=== PATIENT | male | born 1990 | race African-American/Black ===

== ENCOUNTER 2023-11-07 14:57 | Inpatient (IN) | payer OTHER ==
[2023-11-07] MEDS ORDERED: FAMOTIDINE 20 MG/2 ML VIAL IV ONE (15:19)
[2023-11-07] MEDS ORDERED: ONDANSETRON 4 MG/2 ML VIAL ONE (15:19)
[2023-11-07] MEDS ORDERED: NA CHLORIDE 0.9% 1,000 ML ONE ×3 (15:19→22:14)
[2023-11-07 15:59] LABS: Absolute Basophils 0.1 K/uL (0-0.5); Absolute Eosinophils 0.1 K/uL (0-0.5); Absolute Lymphocytes (CBC) 2.1 K/uL (0.7-4.9); Absolute Monocytes 0.7 K/uL (0.1-1.3); Absolute Neutrophil 4.7 K/uL (1.8-8.0); Basophils % 1.2 % (0-1.3); Eosinophils % 1.5 % (0-4.4); Hematocrit 47.3 % (39.6-49.0); Hemoglobin 15.9 g/dL (13.6-17.9); Lymphocytes % 26.7 % (15.3-44.8); MCH 26.3 pg (27.0-35.0); MCHC 33.6 g/dL (32.0-36.0); MCV 78.3 fL (80-100); MPV 9.8 fL (7.6-11.3); Monocytes % 9.1 % (3.3-12.3); Neutrophils % 61.5 % (41.7-73.7); Nucleated Red Blood Cells % 0.2 % (0-0); Platelets 314 thou/uL (152-406); RBC Red Blood Cell Count 6.04 M/uL (4.33-5.43); Red Cell Distribution Width 15.8 % (12.1-15.2)
--- NOTE | 2023-11-07 16:06 | RAD REPORT ---
EXAM DESCRIPTION: Saranya Single View11/07/2023 3:28 pm CLINICAL HISTORY: Chest pain COMPARISON: 2015 FINDINGS: The lungs appear clear of acute infiltrate. The heart is normal size IMPRESSION: No acute abnormalities displayed
[2023-11-07 16:20] LABS: Albumin 4.3 g/dL (3.4-5.0); Albumin/Globulin Ratio 0.9 (1.1-1.8); Bilirubin Total 0.6 mg/dL (0.2-1.0); Globulin 4.9 g/dL (2.3-3.5); Protein, Total 9.2 g/dL (6.4-8.2); Troponin High Sensitivity 6.2 pg/mL (<58.9)
--- NOTE | 2023-11-07 16:48 | ER ---
Nurse's Notes [facility] Name: Vamsi Potter Jr Age: 33 yrs Sex: Male : 1990 Arrival Date: 11/07/2023 Time: 14:57 Bed 19 Private MD: Diagnosis: Diabetes mellitus due to underlying condition with ketoacidosis Presentation: 11/06 15:04 Chief complaint: Patient states: Abdominal pain and chest pains for a couple days. nj1 Denies nausea, vomiting, diarrhea and/or fever. Coronavirus screen: Vaccine status: Patient reports being unvaccinated. Ebola Screen: Patient denies travel to an Ebola-affected area in the 21 days before illness onset. Initial Sepsis Screen: Does the patient meet any 2 criteria? HR > 90 bpm. No. Patient's initial sepsis screen is negative. Does the patient have a suspected source of infection? No. Patient's initial sepsis screen is negative. Risk Assessment: Do you want to hurt yourself or someone else? Patient reports no desire to harm self or others. Onset of symptoms was October 2023. 15:04 Method Of Arrival: Ambulatory [facility] 15:04 Acuity: JORDI 3 nj Historical: - Allergies: 15:06 No Known Allergies; nj1 - PMHx: 15:06 None; nj1 - PSHx: 15:06 None; nj1 - Immunization history:: Client reports having NOT received the Covid vaccine. - Infectious Disease History:: Denies. - Social history:: Smoking status: Patient denies any tobacco usage or history of. Vital Signs: 15:04 BP 128 / 100; Pulse 102; Resp 18; Temp 97.2(TE); Pulse Ox 100% ; Height 5 ft. 2 in. ; nj1 Pain 9/10; 17:38 Weight 117.48 kg (R); Height 5 ft. 10 in. (R); as6 17:38 Body Mass Index 37.16 (117.48 kg, 177.8 cm) as6 15:04 Pain Scale: Adult [facility] ED Course: 15:00 Patient arrived in ED. rg4 15:00 [facility] kb 15:00 Braden Sutherland MD is Attending Physician. kb 15:06 Triage completed. nj1 15:07 Arm band placed on right wrist. nj1 15:10 Taya Aguilera, RN is Primary Nurse. ld1 15:29 XRAY Chest (1 view) In Process Unspecified. EDMS 15:30 Initial lab(s) drawn, by me, sent to lab. Inserted saline lock: 22 gauge in left ll1 antecubital area, using aseptic technique. Blood collected. 16:38 Notified ED physician of a critical lab result(s). BGL 434. ld1 16:47 Baljinder Gomes MD is Hospitalizing Provider. kb 21:20 Inserted saline lock: 22 gauge in right wrist, using aseptic technique. pf1 Administered Medications: 15:35 Drug: NS 0.9% IV 1000 ml IV at 1 bolus Per protocol; 1000 mL bolus Route: IV; Rate: 1 ll1 bolus; Site: left antecubital; 15:40 Drug: Famotidine IVP 20 mg IVP once; dilute with 10 mL 0.9% NaCl; give over 2 minutes ld1 Route: IVP; Site: left antecubital; 15:40 Drug: Ondansetron IVP 4 mg IVP once; over 2 minutes Route: IVP; Site: left antecubital; ld1 17:52 Drug: Insulin Drip - (Insulin Regular Human IVP 100 units, NS 0.9% IV 100 ml) IV at as6 calculated rate continuous; Standard concentration 1unit/ml; Dose for DKA is 0.1 units/kg/hr {Co-Signature: cp4 (Radha Mahajan).} Route: IV; Rate: calculated rate; Site: left antecubital; 19:55 Follow up: Response: No adverse reaction; IV Status: Infusion continued upon admission; as6 IV Intake: 10ml 17:52 Drug: NS 0.9% IV 1000 ml IV at 1000 ml once Route: IV; Rate: 1000 ml; Site: left as6 antecubital; 19:55 Follow up: Response: No adverse reaction; IV Status: Completed infusion; IV Intake: as6 1000ml Intake: 19:55 IV: 1000ml; Total: 1000ml. as6 19:55 IV: 10ml; Total: 1010ml. as6 Outcome: 16:47 Decision to Hospitalize by Provider. kb 21:59 Patient left the ED. as6 Signatures: Dispatcher [employer] EDMS Mellissa Salter, ROUTE SALES MANAGER-C ROUTE SALES MANAGER-Ckb Graciela Ventura rg4 Preston Llanes, RN RN ll1 Taya Aguilera, RN RN ld1 Johan Kelly, RN RN as6 Radha Stern, RN RN pf1 Juany Hooper, RN RN nj1 Radha Mahajan cp4
--- NOTE | 2023-11-07 16:49 | EDPHYS ---
Physician Documentation [facility] Name: Vamsi Potter Jr Age: 33 yrs Sex: Male : 1990 Arrival Date: 11/07/2023 Time: 14:57 Bed 19 Private MD: ED Physician Braden Sutherland HPI: 11/06 16:01 This 33 yrs old Black Male presents to ER via Ambulatory with complaints of Abdominal kb Pain, Nausea. 16:01 Pt is a 33 year old male who presents for abd pain and chest pain that started 3-4 days kb ago. Denies n/v/d, fever. States he has had some shortness of breath. . Historical: - Allergies: 15:06 No Known Allergies; nj1 - PMHx: 15:06 None; nj1 - PSHx: 15:06 None; nj1 - Immunization history:: Client reports having NOT received the Covid vaccine. - Infectious Disease History:: Denies. - Social history:: Smoking status: Patient denies any tobacco usage or history of. ROS: 16:01 Constitutional: As per HPI kb Exam: 16:01 Constitutional: This is a well developed, well nourished patient who is awake, alert, kb and in no acute distress. Head/Face: Normocephalic, atraumatic. ENT: Moist Mucous membranes Cardiovascular: Regular rate Respiratory: Respirations even and unlabored. No increased work of breathing. Talking in full sentences Abdomen/GI: Soft, non-tender. No distention Skin: Warm, dry with normal turgor. Normal color. MS/ Extremity: Pulses equal, no cyanosis. Neurovascular intact. Full, normal range of motion. Neuro: Awake and alert, GCS 15, oriented to person, place, time, and situation. Moves all extremities. Normal gait. Vital Signs: 15:04 BP 128 / 100; Pulse 102; Resp 18; Temp 97.2(TE); Pulse Ox 100% ; Height 5 ft. 2 in. ; nj1 Pain 9/10; 17:38 Weight 117.48 kg (R); Height 5 ft. 10 in. (R); as6 17:38 Body Mass Index 37.16 (117.48 kg, 177.8 cm) as6 15:04 Pain Scale: Adult nj1 MDM: 15:01 Patient medically screened. kb 16:01 Data reviewed: vital signs, nurses notes. kb 16:46 Differential diagnosis: gastritis, gastroesophageal reflux disease, myocardia ischemia kb or infarction, non-specific abd pain, pancreatitis. Consideration of Admission/Observation Patient was admitted/placed on observation. Escalation of care including admission/observation considered. Management of patient was discussed with the following: Hospitalist: Hospitalist team, accepted for admission under Dr Gomes. Counseling: I had a detailed discussion with the patient and/or guardian regarding the historical points, exam findings, and any diagnostic results supporting the discharge/admit diagnosis, lab results, radiology results, the need for further work-up and treatment in the hospital. 11/06 15:05 Order name: CBC with Diff; Complete Time: 16:11 kb 11/06 15:05 Order name: CMP; Complete Time: 16:41 kb 11/06 15:05 Order name: Lipase; Complete Time: 16:41 kb 11/06 15:05 Order name: Troponin HS; Complete Time: 16:41 kb 11/06 16:39 Order name: ABG; Complete Time: 17:45 kb 11/06 19:08 Order name: Glucose, Ancillary Testing; Complete Time: 19:44 EDMS 11/06 20:12 Order name: Glucose, Ancillary Testing EDMS 11/06 21:04 Order name: Basic Metabolic Panel EDMS 11/06 21:18 Order name: Glucose, Ancillary Testing EDMS 11/06 15:05 Order name: XRAY Chest (1 view); Complete Time: 16:07 kb 11/06 15:05 Order name: IV Saline Lock; Complete Time: 15:40 kb 11/06 15:05 Order name: Labs collected and sent; Complete Time: 15:40 kb 11/06 15:05 Order name: Cardiac monitoring; Complete Time: 15:18 kb 11/06 15:05 Order name: EKG - Nurse/Tech; Complete Time: 15:18 kb 11/06 15:05 Order name: O2 Per Protocol; Complete Time: 15:11 kb 11/06 15:05 Order name: O2 Sat Monitoring; Complete Time: 15:11 kb Administered Medications: 15:35 Drug: NS 0.9% IV 1000 ml IV at 1 bolus Per protocol; 1000 mL bolus Route: IV; Rate: 1 ll1 bolus; Site: left antecubital; 15:40 Drug: Famotidine IVP 20 mg IVP once; dilute with 10 mL 0.9% NaCl; give over 2 minutes ld1 Route: IVP; Site: left antecubital; 15:40 Drug: Ondansetron IVP 4 mg IVP once; over 2 minutes Route: IVP; Site: left antecubital; ld1 17:52 Drug: Insulin Drip - (Insulin Regular Human IVP 100 units, NS 0.9% IV 100 ml) IV at as6 calculated rate continuous; Standard concentration 1unit/ml; Dose for DKA is 0.1 units/kg/hr {Co-Signature: cp4 (Radha Mahajan).} Route: IV; Rate: calculated rate; Site: left antecubital; 19:55 Follow up: Response: No adverse reaction; IV Status: Infusion continued upon admission; as6 IV Intake: 10ml 17:52 Drug: NS 0.9% IV 1000 ml IV at 1000 ml once Route: IV; Rate: 1000 ml; Site: left as6 antecubital; 19:55 Follow up: Response: No adverse reaction; IV Status: Completed infusion; IV Intake: as6 1000ml Disposition Summary: 11/07/23 16:47 Hospitalization Ordered Notes: Hospitalization Status: Inpatient Admission kb Provider: Baljinder Gomes Condition: Stable lee Problem: new kb Symptoms: are unchanged kb Bed/Room Type: Standard Location: Intensive Care Unit(11/07/23 21:11) Room Assignment: 5-(11/07/23 21:11) cg Diagnosis - Diabetes mellitus due to underlying condition with ketoacidosis kb Forms: - Medication Reconciliation Form kb - SBAR form kb - Leadership Thank You Letter kb Critical care time excluding procedures: 16:47 Critical care time: Bedside Care: 10 minutes, Consultation: 10 minutes, Family kb Intervention: 10 minutes. Total time: 30 minutes Signatures: Dispatcher [employer] Mellissa Ruiz FNP-C FNP-Mae Michael RN RN Preston Llanes RN RN ll1 Taya Aguilera RN RN ld1 Johan Kelly RN RN as6 Ekaterina Cordero rv1 Juany Hooper RN RN nj1 Radha Mahajan cp4 Corrections: (The following items were deleted from the chart) 15:05 15:05 Chest Single View+RAD.RAD.BRZ ordered. EDMS EDMS 16:39 16:39 Arterial Blood Gas+RC.LAB.BRZ ordered. EDMS EDMS 19:58 16:47 Intensive Care Unit kb rv1 19:58 16:47 kb rv1 21:11 19:58 BR ER HOLD rv1 cg :11 19:58 ERHOLD- rv1 cg
--- NOTE | 2023-11-07 17:29 | P.HP ---
Certification for Inpatient Patient admitted to: Inpatient With expected LOS: >2 Midnights Practitioner: I am a practitioner with admitting privileges, knowledge of patient current condition, hospital course, and medical plan of care. Services: Services provided to patient in accordance with Admission requirements found in Title 42 Section 412.3 of the Code of Federal Regulations Patient History Date of Service: 11/07/23 Reason for admission: DKA History of Present Illness: 33yo M, without significant PMH presents to ED due to progressively worsening abdominal pain and inability to tolerate PO for ~1 week. Reports significant increase in water intake and urine output over the week as well. Abdominal pain is to right of umbilicus and epigastrium. Nothing particularly seems to aggravate or alleviate the pain. He has never had episodes like this before. He denies vomiting, no diarrhea, no constipation, no fever, no recent medications. He has not seen a physician in a very long time, and no routine blood work done in many years. Reports only really drinking water for the last week. No history of etoh use, no tobacco use, no drug use. In the ED, he was found to have a mild TIGIST and significant hyperglycemia with anion gap acidosis, consistent with DKA. He was given fluids and pepcid. Home medications list reviewed: Yes - Past Medical/Surgical History Past Medical History: Patient denies medical history Past Surgical History: Patient denies surgical history - Family History Family History: Reviewed- Non-Contributory - Social History Smoking Status: Never smoker Alcohol use: No CD- Drugs: No Place of Residence: Home (with son) Review of Systems 10-point ROS is otherwise unremarkable Physical Examination - Physical Exam General: Alert, In no apparent distress, Oriented x3, Obese HEENT: EOMI, Sclerae nonicteric Neck: Supple, No LAD Respiratory: Clear to auscultation bilaterally, Normal air movement Cardiovascular: No edema, Regular rate/rhythm Gastrointestinal: Soft and benign, Non-distended, Tenderness (mild, epigastrium) Musculoskeletal: No swelling, No contractures Integumentary: No rashes, No significant lesion Neurological: Normal speech, Normal strength at 5/5 x4 extr, Normal affect - Studies Laboratory Data (last 24 hrs) 11/07/23 11/07/23 15:30 15:30 WBC 7.70 Hgb 15.9 Hct 47.3 Plt Count 314 Sodium 131 L Potassium 4.0 BUN 17 Creatinine 1.47 H Glucose 464 H* Total Bilirubin 0.6 AST 12 L ALT 37 Alkaline Phosphatase 125 H Lipase 60 Assessment and Plan - Advance Directives Does patient have a Living Will: No Does patient have a Durable POA for Healthcare: No Physician Review Additional Text: Problem List DKA Diabetes mellitus, type 2; new onset; insulin dependent morbid obesity TIGIST new onset diabetes hyperglycemia with acidosis, and anion gap check A1c start insulin drip, IVF inability to tolerate PO beyond water CLD for now, once gap closed, can try advancing diet ICU for now BMP q4h overnight, lipase normal had some mild tenderness of abdomen, suspect due to DKA TIGIST secondary to pre-renal / DKA VTE: lovenox Code:full Dispo: home, ~2 days Time Spent Managing Pts Care (In Minutes): 65
[2023-11-07] MEDS ORDERED: INSULIN REGULAR (HUMAN) 100 UNIT/ML ONE (17:33)
[2023-11-07] MEDS ORDERED: NA CHLORIDE 0.9% 100 ML ONE (17:33)
[2023-11-07 17:42] LABS: Blood Gas Oxyhemoglobin 93.9 % (94-97); Blood Gas THB 16.2 g/dl (12-18); Blood O2 Saturation 96.6 % (92-98.5)
[2023-11-07] MEDS: INSULIN -REGULAR HUMAN 100 UNIT in NA CHLORIDE 0.9% 100 ML IV SCH ×2 (17:52→22:00)
[2023-11-07] MEDS ORDERED: SODIUM CHLORIDE 0.9% 10ML INJ IV PRN (18:11)
[2023-11-07] MEDS ORDERED: ONDANSETRON 4 MG/2 ML VIAL IV PRN (18:11)
[2023-11-07] MEDS: ENOXAPARIN 40 MG/0.4 ML SQ SCH (20:00)
[2023-11-07] MEDS: INFLUENZA VACCINE (for 6+ mo) 0.5 ML DOSE IMVAC ONE (20:00)
[2023-11-07 20:36] VITALS: BMI 37.1
[2023-11-07 21:03] LABS: Anion Gap 16.8 mEq/L (5.0-15.0); Potassium 3.8 mEq/L (3.5-5.1)
[2023-11-07] MEDS: D5 0.45 NS 1,000 ML IV SCH (21:10)
[2023-11-07] MEDS ORDERED: ENOXAPARIN 40 MG/0.4 ML SQ ONE (21:16)
[2023-11-07] MEDS ORDERED: D5 0.45 NS 1,000 ML IV ONE (21:16)
[2023-11-07] MEDS: NACHLORIDE 0.45% 1,000 ML IV SCH (23:00)
[2023-11-08] MEDS ORDERED: NACHLORIDE 0.45% 1,000 ML IV ONE (00:01)
[2023-11-08 01:03] LABS: Anion Gap 13.5 mEq/L (5.0-15.0); Potassium 3.5 mEq/L (3.5-5.1)
--- NOTE | 2023-11-08 06:37 | P.PN ---
Date of Service: 11/08/23 Subjective: Feeling better today, abd pain much improved; feeling hungry tolerated clear liquids denies any pains no issues overnight ROS: 10 point ROS as noted above, otherwise negative Physical Exam: GEN: Alert, oriented, NAD, obese HEENT: Normal conjunctiva, sclera anicteric CV: Regular rate and rhythm, no edema Pulm: Nonlabored respirations on room air, clear bilaterally ABD: Soft, nontender, nondistended Neuro: Normal speech, normal affect vitals reviewed Problem List DKA IDDM2; new onset; with hyperglycemia and hyperTG morbid obesity TIGIST, secondary to pre-renal / DKA; resolved DKA IDDM2; new onset; with hyperglycemia and hyperTG morbid obesity new onset diabetes with hyperglycemia, acidosis, and anion gap anion gap improved, closed tolerated clear liquids; advance to consistent carb diet for lunch transition insulin drip to subq insulin (11/07) start 30un semglee with sliding scale continue to monitor, if stable, possible downgrade this afternoon A1c pending lipase elevated 148, Triglycerides elevated 281 (11/07) PRN analgesics / antiemetics TIGIST, secondary to pre-renal / DKA; resolved improved with fluids resolved VTE: Lovenox Code: Full Dispo: home, ~1 day
[2023-11-08] MEDS: PANTOPRAZOLE 40 MG INJ IVP SCH (08:34)
[2023-11-08] MEDS: INFLUENZA VACCINE (for 6+ mo) 0.5 ML DOSE IMVAC ONE (08:35)
[2023-11-08 09:29] LABS: Absolute Basophils 0.2 K/uL (0-0.5); Absolute Eosinophils 0.2 K/uL (0-0.5); Absolute Lymphocytes (CBC) 2.6 K/uL (0.7-4.9); Absolute Monocytes 0.7 K/uL (0.1-1.3); Absolute Neutrophil 2.8 K/uL (1.8-8.0); Basophils % 2.8 % (0-1.3); Eosinophils % 2.4 % (0-4.4); Hematocrit 43.9 % (39.6-49.0); Hemoglobin 14.7 g/dL (13.6-17.9); Lymphocytes % 40.7 % (15.3-44.8); MCH 25.9 pg (27.0-35.0); MCHC 33.4 g/dL (32.0-36.0); MCV 77.6 fL (80-100); MPV 9.5 fL (7.6-11.3); Monocytes % 10.9 % (3.3-12.3); Neutrophils % 43.2 % (41.7-73.7); Nucleated Red Blood Cells % 0.1 % (0-0); Platelets 227 thou/uL (152-406); RBC Red Blood Cell Count 5.66 M/uL (4.33-5.43); Red Cell Distribution Width 16.2 % (12.1-15.2)
[2023-11-08 09:46] LABS: Anion Gap 13.5 mEq/L (5.0-15.0); Phosphorus 2.2 mg/dL (2.5-4.9); Potassium 3.5 mEq/L (3.5-5.1)
[2023-11-08] MEDS ORDERED: D50W 25 GM/50 ML SYRINGE IV PRN (09:59)
[2023-11-08] MEDS ORDERED: GLUCAGON 1 MG/VIAL IM PRN (09:59)
[2023-11-08] MEDS ORDERED: INSULIN GLARGINE 100 UNIT/ML SQ ONE ×2 (10:06→10:39)
[2023-11-08] MEDS: INSULIN GLARGINE 100 UNIT/ML SQ SCH (10:07)
[2023-11-08] MEDS: INSULIN GLARGINE 100 UNIT/ML SQ ONE (10:40)
[2023-11-08] MEDS ORDERED: INSULIN REGULAR (HUMAN) 100 UNIT/ML ONE ×2 (11:47→20:17)
[2023-11-08] MEDS: INSULIN REGULAR (HUMAN) 100 UNIT/ML SQ SCH ×2 (11:53→17:06)
--- NOTE | 2023-11-08 17:48 | EKG ---
Test Date: 2023-11-07 Test Time: 15:16:07 Manager Of Finance: Hugo SHIPMAN MEASUREMENT RESULTS: Intervals: Rate: 98 AZ: 148 QRSD: 96 QT: 342 QTc: 436 [place]: P: 28 AZ: 148 QRS: 76 T: -42 INTERPRETIVE STATEMENTS: Normal sinus rhythm Inferior infarct, age undetermined T wave abnormality, consider lateral ischemia Abnormal ECG No previous ECG available for comparison Electronically Signed On 11-08-23 17:46:27 CDT by Brendon Mccann
[2023-11-08] MEDS ORDERED: INFLUENZA VACCINE (for 6+ mo) 0.5 ML DOSE IMVAC ONE (18:00)
[2023-11-08 19:04] LABS: Albumin 3.4 g/dL (3.4-5.0); Albumin/Globulin Ratio 0.9 (1.1-1.8); Anion Gap 11.5 mEq/L (5.0-15.0); Bilirubin Total 0.5 mg/dL (0.2-1.0); Globulin 3.8 g/dL (2.3-3.5); Potassium 3.5 mEq/L (3.5-5.1); Protein, Total 7.2 g/dL (6.4-8.2)
[2023-11-08 21:11] VITALS: O2SAT 96
[2023-11-08] MEDS ORDERED: SODIUM CHL 0.9% 1000 ML BAG IV ONE (23:28)
[2023-11-08] MEDS ORDERED: NA CHLORIDE 0.9% 1,000 ML IV SCH (23:45)
[2023-11-09 04:52] VITALS: TEMP 97.8
[2023-11-09 05:20] LABS: Absolute Basophils 0.1 K/uL (0-0.5); Absolute Eosinophils 0.1 K/uL (0-0.5); Absolute Lymphocytes (CBC) 1.7 K/uL (0.7-4.9); Absolute Monocytes 0.5 K/uL (0.1-1.3); Absolute Neutrophil 2.6 K/uL (1.8-8.0); Basophils % 1.4 % (0-1.3); Hematocrit 42.2 % (39.6-49.0); Hemoglobin 14.3 g/dL (13.6-17.9); Lymphocytes % 34.5 % (15.3-44.8); MCH 25.8 pg (27.0-35.0); MCHC 33.7 g/dL (32.0-36.0); MCV 76.6 fL (80-100); MPV 9.7 fL (7.6-11.3); Monocytes % 9.3 % (3.3-12.3); Neutrophils % 52.8 % (41.7-73.7); Nucleated Red Blood Cells % 0.1 % (0-0); Platelets 217 thou/uL (152-406); RBC Red Blood Cell Count 5.52 M/uL (4.33-5.43); Red Cell Distribution Width 15.9 % (12.1-15.2)
[2023-11-09 05:25] LABS: Albumin 3.6 g/dL (3.4-5.0); Albumin/Globulin Ratio 0.9 (1.1-1.8); Anion Gap 11.7 mEq/L (5.0-15.0); Bilirubin Total 0.6 mg/dL (0.2-1.0); Globulin 3.9 g/dL (2.3-3.5); Phosphorus 2.5 mg/dL (2.5-4.9); Potassium 3.7 mEq/L (3.5-5.1); Protein, Total 7.5 g/dL (6.4-8.2)
[2023-11-09] MEDS ORDERED: INSULIN GLARGINE 100 UNIT/ML SQ ONE (07:51)
[2023-11-09] MEDS ORDERED: INSULIN REGULAR (HUMAN) 100 UNIT/ML ONE ×4 (07:51→16:49)
[2023-11-09] MEDS ORDERED: ENOXAPARIN 40 MG/0.4 ML SQ ONE (07:52)
[2023-11-09] MEDS ORDERED: PANTOPRAZOLE 40 MG INJ ONE (07:52)
[2023-11-09] MEDS: POTASSIUM 25 MEQ EFFERV TAB PO ONE (07:57)
[2023-11-09] MEDS: INSULIN GLARGINE 100 UNIT/ML SQ SCH (07:58)
[2023-11-09] MEDS ORDERED: INSULIN GLARGINE 100 UNIT/ML SQ SCH (09:00)
[2023-11-09 09:58] VITALS: BP 138/79
--- NOTE | 2023-11-09 11:52 | P.PN ---
Date of Service: 11/09/23 Subjective: ROS: 10 point ROS as noted above, otherwise negative Physical Exam: GEN: Alert, oriented, NAD, obese HEENT: Normal conjunctiva, sclera anicteric CV: Regular rate and rhythm, no edema Pulm: Nonlabored respirations on room air, clear bilaterally ABD: Soft, nontender, nondistended Neuro: Normal speech, normal affect vitals reviewed Problem List DKA; resolved IDDM2; new onset; with hyperglycemia and hyperTG morbid obesity TIGIST, secondary to pre-renal / DKA; resolved DKA; resolved IDDM2; new onset; with hyperglycemia and hyperTG morbid obesity new onset diabetes with hyperglycemia, acidosis, and anion gap anion gap improved, closed tolerated clear liquids; advance to consistent carb diet for lunch transitioned insulin drip to subq insulin (11/07) titrate semglee as needed with sliding scale A1c 10.9 lipase elevated 148, Triglycerides elevated 281 (11/07) PRN analgesics / antiemetics TIGIST, secondary to pre-renal / DKA; resolved improved with fluids resolved VTE: Lovenox Code: Full Dispo: home; later today vs tomorrow anticipate discharge once glucose improves/stabilizes
[2023-11-09] MEDS: INSULIN REGULAR (HUMAN) 100 UNIT/ML IV ONE (13:29)
--- NOTE | 2023-11-10 06:33 | P.DS ---
Admission Date: 11/07/23 Discharge Date: 11/09/23 Disposition: ROUTINE DISCHARGE Discharge Condition: GOOD Reason for Admission: DKA Brief History of Present Illness: 33yo M, without significant PMH presents to ED due to progressively worsening abdominal pain and inability to tolerate PO for ~1 week. Reports significant increase in water intake and urine output over the week as well. Abdominal pain is to right of umbilicus and epigastrium. Nothing particularly seems to aggravate or alleviate the pain. He has never had episodes like this before. He denies vomiting, no diarrhea, no constipation, no fever, no recent medications. He has not seen a physician in a very long time, and no routine blood work done in many years. Reports only really drinking water for the last week. No history of etoh use, no tobacco use, no drug use. In the ED, he was found to have a mild TIGIST and significant hyperglycemia with anion gap acidosis, consistent with DKA. He was given fluids and pepcid. Hospital Course: Problem List DKA; resolved IDDM2; new onset; with hyperglycemia and hyperTG morbid obesity TIGIST, secondary to pre-renal / DKA; resolved Physician Discharge instructions: Patient presented with worsening abdominal pain, inability to tolerate PO x1 week and was found to be in DKA secondary to new onset insulin dependant diabetes type 2. A1c this hospitalization was 10.9. Patient was admitted to ICU, started on insulin drip, given IV fluids, and had improvement of his symptoms. Anion gap closed within 24 hours of admission. Insulin drip was transitioned to subq insulin, diet was slowly advanced and patient continued to show improvement throughout hospitalization. Patient was feeling better, abdominal pain improved, tolerating diet without issues, and was deemed stable for discharge. Advised to keep daily diary of blood glucose readings to take to follow up appointments in case insulin dose needs adjustments. Check glucose levels 4 times a day, fasting in the morning, before lunch, before dinner, and at bedtime. keep record of these levels and take with you to your PCP. Discussed for the short term, goal is fasting glucose levels ~150 to avoid hypoglycemia as he adjusts to insulin and adjusts his diet. Advised to titrate insulin dose every 3rd day based on fasting glucose level. If fasting glucose level is > 175 increase insulin dose by 2 units If remains >250mg/dL, increase insulin dose by 5 units. Patient was also noted to have a mild TIGIST on admission with serum creatinine 1.47 and quickly resolved within 24 hours with IV fluids. TIGIST secondary to dehydration. Medications: Insulin glargine - 50units daily Metformin 500mg twice daily to start, and can titrate up if no side effects after discussion with PCP on follow up. Follow up: PCP 3-5 days Please call to confirm / schedule appointments Physical Exam: GEN: Alert, oriented, NAD, obese HEENT: Normal conjunctiva, sclera anicteric CV: Regular rate and rhythm, no edema Pulm: Nonlabored respirations on room air, clear bilaterally ABD: Soft, nontender, nondistended Neuro: Normal speech, normal affect Vital Signs/Physical Exam: Temp Pulse Resp BP Pulse Ox 97.8 F 84 18 138/79 100 11/09/23 04:00 11/09/23 10:00 11/09/23 10:00 11/09/23 08:00 11/09/23 08:00 Laboratory Data at Discharge: WBC 4.90 thou/uL (4.3-10.9) 11/09/23 04:45 Hgb 14.3 g/dL (13.6-17.9) 11/09/23 04:45 Hct 42.2 % (39.6-49.0) 11/09/23 04:45 Plt Count 217 thou/uL (152-406) 11/09/23 04:45 Sodium 139 mEq/L (136-145) 11/09/23 04:45 Potassium 3.7 mEq/L (3.5-5.1) 11/09/23 04:45 BUN 12 mg/dL (7-18) 11/09/23 04:45 Creatinine 1.08 mg/dL (0.70-1.30) 11/09/23 04:45 Glucose 327 mg/dL (74-106) H 11/09/23 04:45 Phosphorus 2.5 mg/dL (2.5-4.9) 11/09/23 04:45 Magnesium 2.0 mg/dL (1.6-2.4) 11/09/23 04:45 Total Bilirubin 0.6 mg/dL (0.2-1.0) 11/09/23 04:45 AST 10 U/L (15-37) L 11/09/23 04:45 ALT 29 U/L (16-61) 11/09/23 04:45 Alkaline Phosphatase 103 U/L (45-117) 11/09/23 04:45 Triglycerides 281 mg/dL (<150) H 11/08/23 09:14 Cholesterol 205 mg/dL (<200) H 11/08/23 09:14 HDL Cholesterol 26 mg/dL (40-60) L 11/08/23 09:14 Cholesterol/HDL Ratio 7.88 11/08/23 09:14 Lipase 148 U/L (13-75) H 11/08/23 09:14 Home Medications: Blood Sugar Diagnostic [Blood Glucose Test Strip] 1 each [facility] 30 Days #120 strip 11/09/23 Blood-Glucose Meter [Blood Glucose Meter] 1 each [facility] 90 Days #1 ea 11/09/23 Insulin Glargine,Hum.rec.anlog [Lantus Solostar] 45 unit SQ DAILY 30 Days #15 ml 11/09/23 Lancets [[facility]] 1 each [facility] 30 Days #120 ea 11/09/23 Metformin HCl [Glucophage*] 500 mg PO BIDWM 30 Days #60 tab 11/09/23 New Medications: Blood-Glucose Meter [Blood Glucose Meter] 1 each [facility] 90 Days #1 ea Blood Sugar Diagnostic [Blood Glucose Test Strip] 1 each [facility] 30 Days #120 strip Lancets [[facility]] 1 each [facility] 30 Days #120 ea Metformin HCl [Glucophage*] 500 mg PO BIDWM 30 Days #60 tab Insulin Glargine,Hum.rec.anlog [Lantus Solostar] 45 unit SQ DAILY 30 Days #15 ml Physician Discharge Instructions: Physician Discharge instructions: Patient presented with worsening abdominal pain, inability to tolerate PO x1 week and was found to be in DKA secondary to new onset insulin dependant diabetes type 2. A1c this hospitalization was 10.9. Patient was admitted to ICU, started on insulin drip, given IV fluids, and had improvement of his symptoms. Anion gap closed within 24 hours of admission. Insulin drip was transitioned to subq insulin, diet was slowly advanced and patient continued to show improvement throughout hospitalization. Patient was feeling better, abdominal pain improved, tolerating diet without issues, and was deemed stable for discharge. Advised to keep daily diary of blood glucose readings to take to follow up appointments in case insulin dose needs adjustments. Check glucose levels 4 times a day, fasting in the morning, before lunch, before dinner, and at bedtime. keep record of these levels and take with you to your PCP. Discussed for the short term, goal is fasting glucose levels ~150 to avoid hypoglycemia as he adjusts to insulin and adjusts his diet. Advised to titrate insulin dose every 3rd day based on fasting glucose level. If fasting glucose level is > 175 increase insulin dose by 2 units If remains >250mg/dL, increase insulin dose by 5 units. Patient was also noted to have a mild TIGIST on admission with serum creatinine 1.47 and quickly resolved within 24 hours with IV fluids. TIGIST secondary to dehydration. Medications: Insulin glargine - 50units daily Metformin 500mg twice daily to start, and can titrate up if no side effects after discussion with PCP on follow up. Follow up: PCP 3-5 days Please call to confirm / schedule appointments Followup: NONE,NONE [Primary Care Provider] - Time spent managing pt's care (in minutes): 45
== END 2023-11-09 18:03 | disposition home or self-care (01) | DRG 638 ==
LOC: ER 14:57 → ERHOLD 17:07 → 3RD-ICU 22:10
PROVIDERS: ADMIT Hospitalist; ATTEND Hospitalist
PROC: 4A033R1 Measurement of Arterial Saturation, Peripheral, Percutaneous Approach (ICD-10-PCS; principal; 2023-11-07)
DX: E11.10 Type 2 diabetes mellitus with ketoacidosis without coma (principal); N17.9 Acute kidney failure, unspecified; E86.0 Dehydration; E66.01 Morbid (severe) obesity due to excess calories; Z79.4 Long term (current) use of insulin; Z68.37 Body mass index [BMI] 37.0-37.9, adult; Z79.84 Long term (current) use of oral hypoglycemic drugs; Z79.899 Other long term (current) drug therapy; Z28.310 Unvaccinated for COVID-19
CPT/HCPCS: 36415; 36600; 71045; 80048; 80053; 80061; 82805; 82947; 83036; 83690; 83735; 84100; 84484; 85025; 93005; 96365; 96366; 96375; 99285; C9113; J1650; J1815; J2405; J7030; J7799